=== PATIENT | male | born 1950 | race Caucasian/White ===

== ENCOUNTER 2017-09-18 18:15 | Emergency (ER) | payer OTHER ==
[~2017-09-18] VITALS: Ht 172.7 cm; Wt 85.7 kg
[2017-09-18] MEDS ORDERED: ALLOPURINOL100 MG (18:36)
[2017-09-18] MEDS ORDERED: TRADJENTA5 MG (18:36)
[2017-09-18] MEDS ORDERED: ATORVASTATIN CA20 MG (18:36)
[2017-09-18] MEDS ORDERED: GLIMEPIRIDE2 MG (18:37)
[2017-09-18] MEDS ORDERED: GABAPENTIN600 MG (18:37)
[2017-09-18] MEDS ORDERED: SERTRALINE HCL25 MG (18:37)
[2017-09-18] MEDS ORDERED: METOPROLOL SUC100 MG (18:37)
[2017-09-18] MEDS ORDERED: AMLODIPINE BESY10 MG (18:37)
[2017-09-18] MEDS ORDERED: FERROUS SULFATE1 GM (18:38)
[2017-09-18] MEDS ORDERED: CLOPIDOGREL BIS75 MG (18:38)
== END 2017-09-18 20:02 | disposition home or self-care (01) ==
LOC: ER 18:15
DX: B34.9 Viral infection, unspecified (principal)